=== PATIENT | female | born 1960 | race Caucasian/White ===

== ENCOUNTER 2022-09-18 06:39 | Outpatient (CLI) | payer BC ==
[~2022-09-18 06:39] MED LIST: NO HOME MEDS
[2022-09-18 07:03] LABS: BASOPHILS % (AUTO) 0.4 % (0-1); EOSINOPHILS # (AUTO) 0.1 X10'3 (0-0.9); EOSINOPHILS % (AUTO) 1.1 % (0-6); HEMATOCRIT 42.1 % (35.0-45.0); HEMOGLOBIN 13.9 g/dl (12.0-16.0); LYMPHOCYTES # (AUTO) 1.9 X10'3 (1.1-4.8); MEAN CORPUSCULAR HEMOGLOBIN 34.6 PG (27.0-31.0); MEAN CORPUSCULAR HGB CONC 33.1 g/dL (33.0-36.5); MEAN CORPUSCULAR VOLUME 104.7 FL (78-98); MEAN PLATELET VOLUME 8.3 FL (7.4-10.4); MONOCYTES # (AUTO) 0.6 X10'3 (0-0.9); MONOCYTES % (AUTO) 6.6 % (2-12); NEUTROPHILS % (AUTO) 71.9 % (42-75); PLATELET COUNT 241 X10'3 (140-440); RED BLOOD COUNT 4.02 X10'6 (4.20-5.60); RED CELL DISTRIBUTION WIDTH 13.8 % (11.5-14.5); WHITE BLOOD COUNT 9.7 X10'3 (4.5-11.0)
[2022-09-18 07:29] LABS: ALANINE AMINOTRANSFERASE 27 U/L (12-78); ALBUMIN/GLOBULIN RATIO 1.1 (1.1-1.5); ALKALINE PHOSPHATASE 68 IU/L (46-116); ANION GAP 4 (8-16); ASPARTATE AMINO TRANSFERASE 28 U/L (10-37); BILIRUBIN,TOTAL 0.6 MG/DL (0.1-1.0); BLOOD UREA NITROGEN 15 MG/DL (7-18); CALCIUM 9.3 MG/DL (8.5-10.1); CHLORIDE 107 MMOL/L (99-107); CHOL/HDL RATIO 2.3 (0.00-4.99); CHOLESTEROL 230 MG/DL (0-200); CREATININE 0.94 MG/DL (0.40-0.90); GLUCOSE 106 MG/DL (70-104); HDL CHOLESTEROL 101 MG/DL (35-60); LDL CHOLESTEROL 112 MG/DL (50-100); POTASSIUM 4.2 MMOL/L (3.5-5.1); SODIUM 141 MMOL/L (135-145); TOTAL CARBON DIOXIDE 30.4 MMOL/L (24-32); TOTAL PROTEIN 7.8 G/DL (6.4-8.2); TRIGLYCERIDES 60 MG/DL (20-135); eGFR 61 ML/MIN
== END 2022-09-18 23:59 | disposition home or self-care (01) ==
LOC: LAB 06:39
PROVIDERS: ATTEND Physician Assistant
DX: Z00.00 Encounter for general adult medical examination without abnormal findings (principal); D75.89 Other specified diseases of blood and blood-forming organs; Z79.899 Other long term (current) drug therapy
CPT/HCPCS: 36415; 80053; 80061; 82306; 82607; 82746; 84439; 84443; 84481; 85025

== ENCOUNTER 2023-01-27 06:26 | Outpatient (CLI) | payer BC ==
[2023-01-27 07:33] LABS: BASOPHILS # (AUTO) 0.1 X10'3 (0-0.2); BASOPHILS % (AUTO) 0.6 % (0-1); EOSINOPHILS # (AUTO) 0.1 X10'3 (0-0.9); EOSINOPHILS % (AUTO) 1.1 % (0-6); HEMATOCRIT 39.5 % (35.0-45.0); HEMOGLOBIN 13.2 g/dl (12.0-16.0); LYMPHOCYTES % (AUTO) 24.5 % (21-51); MEAN CORPUSCULAR HEMOGLOBIN 35.1 PG (27.0-31.0); MEAN CORPUSCULAR HGB CONC 33.3 g/dL (33.0-36.5); MEAN CORPUSCULAR VOLUME 105.3 FL (78-98); MEAN PLATELET VOLUME 8.8 FL (7.4-10.4); MONOCYTES # (AUTO) 0.7 X10'3 (0-0.9); NEUTROPHILS # (AUTO) 5.4 X10'3 (1.8-7.7); NEUTROPHILS % (AUTO) 65.8 % (42-75); PLATELET COUNT 237 X10'3 (140-440); RED BLOOD COUNT 3.75 X10'6 (4.20-5.60); RED CELL DISTRIBUTION WIDTH 12.9 % (11.5-14.5); WHITE BLOOD COUNT 8.2 X10'3 (4.5-11.0)
[2023-01-27 07:56] LABS: ALANINE AMINOTRANSFERASE 30 U/L (12-78); ALBUMIN 3.7 G/DL (3.4-5.0); ALBUMIN/GLOBULIN RATIO 1.1 (1.1-1.5); ALKALINE PHOSPHATASE 61 IU/L (46-116); ANION GAP 6 (8-16); ASPARTATE AMINO TRANSFERASE 21 U/L (10-37); BILIRUBIN,TOTAL 0.8 MG/DL (0.1-1.0); BLOOD UREA NITROGEN 16 MG/DL (7-18); BUN/CREATININE RATIO 16.5 (10.0-20.0); CHLORIDE 108 MMOL/L (99-107); CHOL/HDL RATIO 2.5 (0.00-4.99); CHOLESTEROL 203 MG/DL (0-200); CREATININE 0.97 MG/DL (0.40-0.90); GLUCOSE 93 MG/DL (70-104); HDL CHOLESTEROL 80 MG/DL (35-60); LDL CHOLESTEROL 99 MG/DL (50-100); SODIUM 143 MMOL/L (135-145); TOTAL CARBON DIOXIDE 28.7 MMOL/L (24-32); TRIGLYCERIDES 32 MG/DL (20-135); eGFR 58 ML/MIN
== END 2023-01-27 23:59 | disposition home or self-care (01) ==
LOC: LAB 06:26
PROVIDERS: ATTEND Nurse Practitioner
DX: Z00.00 Encounter for general adult medical examination without abnormal findings (principal); E53.9 Vitamin B deficiency, unspecified; E78.2 Mixed hyperlipidemia
CPT/HCPCS: 36415; 80053; 80061; 82306; 84443; 85025

== ENCOUNTER 2024-02-11 06:41 | Outpatient (CLI) | payer BC ==
[2024-02-11 07:13] LABS: BASOPHILS # (AUTO) 0.1 X10'3 (0-0.2); BASOPHILS % (AUTO) 0.7 % (0-1); EOSINOPHILS # (AUTO) 0.1 X10'3 (0-0.9); EOSINOPHILS % (AUTO) 1.1 % (0-6); HEMATOCRIT 42.3 % (35.0-45.0); HEMOGLOBIN 14.5 g/dl (12.0-16.0); LYMPHOCYTES % (AUTO) 22.1 % (21-51); MEAN CORPUSCULAR HEMOGLOBIN 35.8 PG (27.0-31.0); MEAN CORPUSCULAR HGB CONC 34.3 g/dL (33.0-36.5); MEAN CORPUSCULAR VOLUME 104.6 FL (78-98); MEAN PLATELET VOLUME 8.6 FL (7.4-10.4); MONOCYTES # (AUTO) 0.7 X10'3 (0-0.9); MONOCYTES % (AUTO) 7.1 % (2-12); NEUTROPHILS # (AUTO) 6.4 X10'3 (1.8-7.7); PLATELET COUNT 241 X10'3 (140-440); RED BLOOD COUNT 4.05 X10'6 (4.20-5.60); RED CELL DISTRIBUTION WIDTH 12.5 % (11.5-14.5); WHITE BLOOD COUNT 9.2 X10'3 (4.5-11.0)
[2024-02-11 07:40] LABS: HEMOGLOBIN A1C 5.5 % (4.5-6.2)
[2024-02-11 07:41] LABS: ALANINE AMINOTRANSFERASE 33 U/L (12-78); ALKALINE PHOSPHATASE 69 IU/L (46-116); ANION GAP 7 (8-16); ASPARTATE AMINO TRANSFERASE 23 U/L (10-37); BILIRUBIN,TOTAL 1.3 MG/DL (0.1-1.0); BLOOD UREA NITROGEN 13 MG/DL (7-18); BUN/CREATININE RATIO 12.7 (10.0-20.0); CALCIUM 9.2 MG/DL (8.5-10.1); CHLORIDE 104 MMOL/L (99-107); CHOL/HDL RATIO 2.3 (0.00-4.99); CHOLESTEROL 201 MG/DL (0-200); CREATININE 1.02 MG/DL (0.40-0.90); GLUCOSE 95 MG/DL (70-104); HDL CHOLESTEROL 88 MG/DL (35-60); LDL CHOLESTEROL 95 MG/DL (50-100); POTASSIUM 3.7 MMOL/L (3.5-5.1); SODIUM 139 MMOL/L (135-145); TOTAL CARBON DIOXIDE 27.8 MMOL/L (24-32); TRIGLYCERIDES 63 MG/DL (20-135); eGFR 55 ML/MIN
== END 2024-02-11 23:59 | disposition home or self-care (01) ==
LOC: LAB 06:41
PROVIDERS: ATTEND Nurse Practitioner
DX: Z00.00 Encounter for general adult medical examination without abnormal findings (principal); E55.9 Vitamin D deficiency, unspecified; R73.01 Impaired fasting glucose
CPT/HCPCS: 36415; 80053; 80061; 82306; 82670; 82679; 83036; 84144; 84443; 85025

== ENCOUNTER 2025-04-21 07:12 | Outpatient (CLI) | payer BC ==
[2025-04-21 07:46] LABS: MEAN PLATELET VOLUME 8.5 FL (7.4-10.4); RED CELL DISTRIBUTION WIDTH 12.9 % (11.5-14.5)
[2025-04-21 08:29] LABS: CHOL/HDL RATIO 2.7 (0.00-4.99); CREATININE 1.01 MG/DL (0.40-0.90); LDL CHOLESTEROL 108 MG/DL (50-100); TOTAL CARBON DIOXIDE 29.3 MMOL/L (24-32); eGFR 55 ML/MIN
== END 2025-04-21 23:59 | disposition home or self-care (01) ==
LOC: LAB 07:12
PROVIDERS: ATTEND Nurse Practitioner
DX: E03.9 Hypothyroidism, unspecified (principal); E78.1 Pure hyperglyceridemia; E89.41 Symptomatic postprocedural ovarian failure
CPT/HCPCS: 36415; 80053; 80061; 82670; 84443; 85025

== ENCOUNTER 2025-05-15 06:51 | Emergency (ER) | payer BC ==
[~2025-05-15] VITALS: Ht 167.6 cm; Wt 67.0 kg
--- NOTE | 2025-05-15 06:58 | Physician Documentation ---
Addendum CHIEF COMPLAINT/HPI: Redness and irritation (itching and mild burning) of the left eye beginning t hree days ago. No visual disturbance. REVIEW OF SYSTEMS: Constitutional: Denies chills, fatigue, fever, weight gain or weight loss. HEENT: Denies hearing loss, sinus pressure or visual changes. Respiratory: Denies cough, shortness of breath or wheezing. Cardiovascular: Denies chest pain, pain while walking (claudication), edema or palpitations. Gastrointestinal: Denies abdominal pain, blood in stool, constipation, diarrhea, heartburn, loss of appetite, nausea or vomiting. Genitourinary: Denies painful urination (dysuria), excessive amount of urine (polyuria) or urinary frequency. Metabolic/Endocrine: Denies cold intolerance, heat intolerance, excessive thirst (polydipsia) or excessive hunger (polyphagia). Neurological: Denies dizziness, extremity numbness, extremity weakness, headaches, seizures or tremors. Psychiatric: Denies anxiety or depression. Integumentary: Denies breast discharge, breast lump, hives, mole change(s), rash or skin lesion. Musculoskeletal: Denies back pain, joint pain, joint swelling or neck pain. Hematologic: Denies easily bleeding, easily bruises, lymphedema or issues with blood clots. Immunologic: Denies food allergies or seasonal allergies. PHYSICAL EXAMINATION: Vitals and nursing note reviewed. Constitutional: General: Patient is awake, alert, oriented x 4 in no acute distress and well appearing. Speech is clear and lucid. Appearance: Normal appearance. Patient is not ill-appearing, toxic-appearing or diaphoretic. HENT: Head: Normocephalic and atraumatic. Mouth: Mucous membranes are moist. Pharynx: Oropharynx is clear. Eyes: General: No scleral icterus. Mild scleral injection in the left eye. Extraocular Movements: Extraocular movements intact. Pupils: Pupils are equal, round, and reactive to light. MEDICAL DECISION MAKING: Appears to be conjunctivitis. No evidence of iritis or foreign body. I am going to prescribe sodium sulfacetamide ophthalmic drops, 10%, two drops left eye q.6 H. Warm compresses. Return precautions. Departure Disposition: HOME / SELF CARE / HOMELESS Impression: Primary Impression: Conjunctivitis Condition: Stable Departure Disposition: HOME / SELF CARE / HOMELESS Impression: Primary Impression: Conjunctivitis Additional Impression Text Left eye. Condition: Stable Prescriptions Sulfacetamide Sodium 10%* (Sulamyd 10% Ophthalmic Solution*) 15 Ml Bottle 2 DROP LEFTEYE Q6H for 7 Days, #15 ML Prov: SANTOS ERAZO MD 05/15/25 Comments You have been evaluated for redness and irritation involving her left eye. This appears to be conjunctivitis. I have sent a prescription for topical antibiotic to your pharmacy. In addition, please apply warm compresses to your left eye 4 times daily for the next two or three days, 5-10 minutes each time. Do not hesitate to return here for worsening symptoms or new/unusual symptoms. Education Educated: Patient Educated regarding: diagnosis, treatment, prognosis SANTOS ERAZO MD May 15, 2025 06:58
[2025-05-15] MEDS ORDERED: SUL50S LEFTEYE (07:04)
[2025-05-15 07:29] VITALS: BP 149/77; PULSE 64; RESP 14; TEMP 98.5; O2SAT 100
== END 2025-05-15 07:31 | disposition home or self-care (01) ==
LOC: EEVIPCON 06:51 → ER 06:51
DX: H10.9 Unspecified conjunctivitis (principal)
CPT/HCPCS: 99283